=== PATIENT | male | born 1985 | race African-American/Black ===

== ENCOUNTER 2020-05-04 06:43 | Day surgery (SDC) | payer OTHER ==
[2020-05-02 10:50] VITALS: BMI 27.6
[2020-05-04] MEDS ORDERED: LIDOCAINE HCL 2% (20ML MULTI-DOSE VIAL) ONE (07:16)
[2020-05-04] MEDS ORDERED: MIDAZOLAM HCL 2 MG/2 ML SINGLE DOSE VIAL ONE (07:19)
[2020-05-04] MEDS ORDERED: PROPOFOL 20 ML ONE ×2 (07:19→08:22)
[2020-05-04] MEDS ORDERED: ONDANSETRON 4 MG/2 ML VIAL IVPUSH PRN (07:41)
[2020-05-04] MEDS ORDERED: LACTATED RINGERS SOLUTION 1,000 ML IV SCH (07:45)
[2020-05-04] MEDS ORDERED: LIDOCAINE HCL 2% (50ML VIAL) NR ONE (08:10)
[2020-05-04 08:56] VITALS: TEMP 97.7
[2020-05-04 09:21] VITALS: BP 122/75; PULSE 69
== END 2020-05-04 09:23 | disposition home or self-care (01) ==
LOC: FASU 06:43
PROVIDERS: ATTEND Orthopaedic Surgery Hand Surgery
PROC: 01N50ZZ Release Median Nerve, Open Approach (ICD-10-PCS; principal; 2020-05-04 08:16)
DX: G56.02 Carpal tunnel syndrome, left upper limb (principal)